=== PATIENT | male | born 1965 | race Caucasian/White ===

== ENCOUNTER 2018-03-19 15:57 | Observation (INO) | payer BC ==
[2018-03-19 18:00] LABS: Magnesium 2.3 mg/dL (1.6-2.6); Potassium 3.8 mmol/L (3.5-5.1)
[2018-03-19] MEDS ORDERED: Famotidine 20 MG TAB PO SCH (19:15)
[2018-03-19 19:49] LABS: Troponin I Less than 0.010 ng/mL (< 0.028)
[2018-03-19 20:27] VITALS: BMI 33.3
[2018-03-19 23:28] LABS: Troponin I 0.011 ng/mL (< 0.028)
[2018-03-20 08:23] VITALS: BP 148/77; TEMP 97.8
--- NOTE | 2018-03-20 09:42 | SS ---
SHORT STAY/ADMIT DISCHARGE SUMMARY PRIMARY CARE PHYSICIAN: Dr. Winters. CHIEF COMPLAINT: Full feeling in his head. HISTORY OF PRESENT ILLNESS: Mr. La is a pleasant 52-year-old gentleman that has a history of hyp ertension. He also has a history of colon cancer, which was diagnosed about a year ago. He says carole t he was in his usual state of health until a couple of days ago. He says he felt a pressure in his head. He says the best way he could describe it is as if he was bearing down like he was straining a nd then the feeling you get when you do that. He says it felt like his eyes were burning and there w as a pressure in his head and he felt a bit flushed. He says he feels this way when his blood pressu re is elevated and he says that one time he felt like this blood pressure was around 197/97. He says he felt this way when he was on his way to work and says that he started to feel a little bit better . Then he went to have some lunch and decided to go on home. When he got home, he checked his blood pressure and it was 157/87. He checked it again it was 167/87 and says that he believes that his bl ood pressure monitor at home tends to run lower than the ones that are in his physician's office and for this reason, he came to the emergency room for evaluation. He was also a little bit concerned th at it could be his heart, even though he did not have any chest pain. He says that about a year ago, he had had a similar feeling. He had seen Dr. Bishop and he had done a stress test and an echocardiog katelynn. He was told that the stress test was a little bit "abnormal" and he was supposed to get a cardi ac catheterization. He says that he never followed up with that because in the interim, he was found to have colon cancer and has colon resection and since then he had actually felt better. He says he has improved his diet and never went back for followup. The patient currently denies any chest pain whatsoever. He says he does not have any arm pain, neck pain, jaw pain. No nausea, no vomiting, no diaphoresis. He admits that he has been under a lot of stress lately. 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 H e also denies any leg pain or leg swelling. No PND, no orthopnea, etc. REVIEW OF SYSTEMS: All systems were reviewed and are negative except for that mentioned in the histo ry of present illness. PAST MEDICAL HISTORY: Significant for hypertension as well as colon cancer. PAST SURGICAL HISTORY: He has had a colon resection back in 02/07/2017. ALLERGIES: No known drug allergies. SOCIAL HISTORY: He is . He is a nonsmoker, nondrinker. He has 1 daughter. He is a F[employer] C[employer] E. FAMILY HISTORY: Strong history of hypertension in the family. His father as well as brother had hyp ertension. Father had coronary artery disease and a bypass surgery at age 68. Mother has three type s of cancer. MEDICATIONS: Include Crestor 20 mg daily, metoprolol 25 mg extended-release daily, and aspirin 81 mg a day. PHYSICAL EXAMINATION: GENERAL: He is alert and oriented. He appears to be in no acute distress. He is feeling much yifan r now. VITAL SIGNS: Currently, his blood pressure was 134/79, heart rate 69, respiratory rate of 20, temper ature is 98.0. HEENT: Pupils are equal, round, and reactive. Extraocular muscles are intact. His sclerae anicteri c. Throat no erythema, no exudates. NECK: No adenopathy, no bruits. LUNGS: Clear to auscultation. There is no wheezing, no rales. CARDIOVASCULAR: He has a normal S1, S2. There was no S3 or S4. No murmurs, clicks, or rubs. ABDOMEN: Soft, obese, nontender, nondistended. Positive for bowel sounds. There is no rebound, no guarding, no organomegaly. EXTREMITIES: There is no clubbing, cyanosis, no edema. No muscle tenderness. No calf tenderness. Good dorsalis pedis pulses bilaterally. NEUROLOGIC: Muscle strength is 5/5 in both his upper and lower extremities. SKIN/INTEGUMENT: There is no skin changes. No rash. LABORATORY DATA: The lab work was reviewed. He had had 2 sets of troponins, which were negative at 0.010. EKG by my reading shows sinus rhythm, rate of 64. There were some poor R-wave progression i n V1 through V3. He had a chest x-ray showed mild cardiomegaly, but no evidence of any airspace dise ase, this was also by my reading. ASSESSMENT: This is a pleasant 52-year-old gentleman who presented to the emergency room with a feel ing of fullness in his head is associated with elevated blood pressure. Currently, he is feeling muc h improved and he has admitted to quite a bit of stress lately and I suspect that his symptoms are li mahad related to uncontrolled blood pressure. I gave the patient 2 options, he could either stay and be seen by our project account manager here. However, he has already been established with the project account manager at an outside facility and he seems clinically stable and he could follow up with his project account manager at [facility]. He decided to do that later. We will therefore add a low-dose amlodipine to what he is already taking since his heart rate is already in the 60s, we will not increase metoprolol, but co ntinue the current dose and amlodipine. We discussed diet with regards to decreasing the salt load t hat he has been eating the ham and cheese sandwiches, etc. and also to try his best to reduce the str ess or his reaction to stress and to follow up with Dr. Bishop to have the cardiac catheterization done .
--- NOTE | 2018-03-24 13:26 | EKG ---
Test Reason : Blood Pressure : / mmHG Vent. Rate : 064 BPM Atrial Rate : 064 BPM P-R Int : 184 ms QRS Dur : 068 ms QT Int : 390 ms P-R-T Axes : 023 003 013 degrees QTc Int : 402 ms Normal sinus rhythm Low voltage QRS Cannot rule out Anteroseptal infarct , age undetermined Abnormal ECG Confirmed by TERI RM ([id number]), assignment desk editor MIGUEL RICHARD ([id number]) on 03/24/2018 1:25:58 PM Referred By: Confirmed By:TERI RM
== END 2018-03-20 10:13 | disposition home or self-care (01) ==
LOC: ERS 15:57 → ERHOLD 18:22 → 2SW 20:20
PROVIDERS: ADMIT Internal Medicine; ATTEND Internal Medicine
DX: I10 Essential (primary) hypertension (principal); Z85.038 Personal history of other malignant neoplasm of large intestine
CPT/HCPCS: 36415; 83735; 84443; 93005; G0378

== ENCOUNTER 2018-03-26 06:02 | Day surgery (SDC) | payer BC ==
[2018-03-23 16:14] VITALS: BMI 26.6
[2018-03-26] MEDS ORDERED: Diazepam 5 MG TAB ONE (06:31)
[2018-03-26] MEDS ORDERED: Fentanyl 100 MCG/2 ML VIAL ONE (06:34)
[2018-03-26] MEDS ORDERED: Midazolam HCl 2 mg/2 ml Vial ONE (06:34)
[2018-03-26] MEDS ORDERED: Lidocaine 1% (PF) 30 ML VIAL ONE (06:34)
[2018-03-26 07:14] LABS: Cardiac Risk 3.2 (Less than 4.5)
[2018-03-26] MEDS ORDERED: Nitroglycerin 100MG/250ML BOT 0 ML ONE (08:08)
[2018-03-26] MEDS ORDERED: Iopamidol 370 76% 100 ML VIAL ONE (11:55)
--- NOTE | 2018-03-26 23:09 | DIS ---
Mr. La underwent cardiac catheterization today, found to have no coronary artery disease. He has normal left ventricular function. The symptoms that the cause of his symptoms are not completely cl ear. He may be feeling some variation in his blood pressure, his symptoms could be related to his es ophagus. RECOMMENDATIONS: As follows: 1. Take amlodipine 2.5 mg a day. 2. Toprol-XL 25 mg a day. 3. Stop aspirin. 4. Ranitidine will be stopped for a month and substitute Protonix 40 mg a day. 5. Crestor 10 mg a day. 6. Clonidine if blood pressure goes over 180. 7. Encourage him to try some relaxation techniques, some of his symptoms may be related to tension a nd stress. He will be seen in the office in about a month.
== END 2018-03-26 14:00 | disposition home or self-care (01) ==
LOC: CCL 06:02
PROVIDERS: ATTEND Internal Medicine Cardiovascular Disease
PROC: B2111ZZ Fluoroscopy of Multiple Coronary Arteries using Low Osmolar Contrast (ICD-10-PCS; principal; 2018-03-26)
PROC: 4A023N7 Measurement of Cardiac Sampling and Pressure, Left Heart, Percutaneous Approach (ICD-10-PCS; principal; 2018-03-26)
DX: R07.89 Other chest pain (principal); R94.39 Abnormal result of other cardiovascular function study; I10 Essential (primary) hypertension; E78.00 Pure hypercholesterolemia, unspecified; F17.220 Nicotine dependence, chewing tobacco, uncomplicated; Z79.82 Long term (current) use of aspirin; Z79.899 Other long term (current) drug therapy
CPT/HCPCS: 36415; 80061; 93458; 99152; C1769; J1644; J2001; J2250; J3010